=== PATIENT | male | born 1980 | race Caucasian/White ===

== ENCOUNTER 2023-12-24 10:58 | Emergency (ER) | payer OTHER, BC ==
[2023-12-24] MEDS: Sodium Chloride 0.9% 1,000 ML IV SCH (11:58)
[2023-12-24] MEDS: HYDROmorphone 1 MG/ML Syringe IVPUSH ONE (11:58)
[2023-12-24] MEDS: Metoclopramide 10 MG/2 ML SDV IVPUSH ONE (12:01)
[2023-12-24 12:15] LABS: BASOPHILS PERCENT AUTO 0.3 % (0.0-1.0); EOSINOPHILS ABSOLUTE AUTO 0.3 K/mm3 (0.0-0.4); EOSINOPHILS PERCENT AUTO 2.9 % (0.0-6.0); HEMOGLOBIN 14.2 gm/dl (14.0-18.0); IMMATURE GRAN ABSOLUTE AUTO 0.02 K/mm3 (0.00-0.05); IMMATURE GRAN PERCENT AUTO 0.2 % (0.0-0.4); LYMPHOCYTES ABSOLUTE AUTO 1.9 K/mm3 (1.0-4.8); LYMPHOCYTES PERCENT AUTO 19.8 % (24.0-44.0); MEAN CORPUSCULAR HEMOGLOBIN 29.5 pg (28.0-32.0); MEAN CORPUSCULAR HGB CONC 33.8 g/dl (32.0-36.0); MEAN CORPUSCULAR VOLUME 87.3 fl (83.0-99.0); MEAN PLATELET VOLUME 8.7 fl (9.4-12.4); MONOCYTES ABSOLUTE AUTO 0.6 K/mm3 (0.0-0.8); MONOCYTES PERCENT AUTO 6.3 % (0.0-8.0); NEUTROPHILS ABSOLUTE AUTO 6.8 K/mm3 (1.8-7.7); NEUTROPHILS PERCENT AUTO 70.5 % (41.0-71.0); PLATELET COUNT,PLT 282 K/mm3 (150-400); RED BLOOD CELL COUNT 4.81 M/mm3 (4.52-5.90); WHITE BLOOD CELL COUNT,WBC 9.63 K/mm3 (3.9-11.3)
[2023-12-24 12:34] LABS: A/G RATIO 1.6 (1-2); ALBUMIN 4.1 g/dl (3.4-5.0); ANION GAP 12.3 (5-15); BILIRUBIN TOTAL 0.5 mg/dL (0.2-1.0); BUN/CREATININE RATIO 13.6 (14-18); CALCIUM 9.1 mg/dL (8.5-10.1); CREATININE 1.1 mg/dL (0.7-1.3); EST CRCL DRUG DOSING (CG) 88.48 mL/min; POTASSIUM,K 3.3 mEq/L (3.5-5.1); PROTEIN TOTAL,TP 6.6 g/dl (6.4-8.2)
[2023-12-24] MEDS: Iopamidol 612 MG/ML 100 ML Bottle IVPUSH ONE (13:19)
[2023-12-24] MEDS: Morphine 2 MG/ML SYRINGE IVPUSH ONE (14:36)
== END 2023-12-24 16:23 | disposition home or self-care (01) ==
LOC: JD.ED 10:58
DX: S20.212A Contusion of left front wall of thorax, initial encounter (principal); S20.222A Contusion of left back wall of thorax, initial encounter; S09.93XA Unspecified injury of face, initial encounter; Z79.899 Other long term (current) drug therapy; V59.40XA Driver of pick-up truck or van injured in collision with unspecified motor vehicles in traffic accident, initial encounter; Y92.410 Unspecified street and highway as the place of occurrence of the external cause
CPT/HCPCS: 36415; 70450; 70486; 71045; 71260; 72125; 72128; 72131; 73030; 74177; 80053; 85025; 96361; 96374; 96375; 99284; J1170; J2270; J2765; J7030; Q9967